=== PATIENT | male | born 1965 | race Caucasian/White ===

== ENCOUNTER 2021-07-16 09:47 | Emergency (ER) | payer MEDICAID ==
[~2021-07-16] VITALS: Ht 193 cm; Wt 97.7 kg
[2021-07-16 10:08] VITALS: BP 128/79
[2021-07-16] MEDS ORDERED: TOBR5DRO2 LEFTEYE (10:30)
== END 2021-07-16 10:56 | disposition home or self-care (01) ==
LOC: ER 09:47
DX: H01.006 Unspecified blepharitis left eye, unspecified eyelid (principal)
CPT/HCPCS: 99283

== ENCOUNTER 2021-07-31 02:16 | Emergency (ER) | payer MEDICAID ==
[~2021-07-31 02:16] MED LIST: TOBR5DRO2 LEFTEYE
== END 2021-07-31 05:39 | disposition left against medical advice (07) ==
LOC: ER 02:16
DX: S01.81XA Laceration without foreign body of other part of head, initial encounter (principal); Z53.21 Procedure and treatment not carried out due to patient leaving prior to being seen by health care provider; X58.XXXA Exposure to other specified factors, initial encounter; Y93.89 Activity, other specified; Y92.89 Other specified places as the place of occurrence of the external cause; Y99.8 Other external cause status

== ENCOUNTER 2021-07-31 13:32 | Emergency (ER) | payer MEDICAID ==
[~2021-07-31] VITALS: Ht 193 cm; Wt 97.7 kg
[2021-07-31 13:59] VITALS: BP 141/84
== END 2021-07-31 18:07 | disposition left against medical advice (07) ==
LOC: ER 13:32
DX: M54.2 Cervicalgia (principal); Z53.21 Procedure and treatment not carried out due to patient leaving prior to being seen by health care provider